=== PATIENT | female | born 1940 | race Caucasian/White ===

== ENCOUNTER 2024-11-30 18:07 | Inpatient (IN) | payer MEDICARE, OTHER ==
[~2024-11-30] VITALS: Ht 177.8 cm; Wt 68.2 kg
[2024-11-30] VITALS (20 sets, daily range): BP systolic 108–175; BP diastolic 57–90
[2024-11-30] MEDS ORDERED: Acetaminophen 300 MG/Codeine 30 MG/COMBO PO ONE (20:05)
[2024-11-30] MEDS ORDERED: KETOROLAC TROMETHAMINE 30 MG/ML SDV IM ONE (20:05)
[2024-11-30] MEDS ORDERED: MORPHINE SULFATE 4 MG/ML VIAL IV PRN (23:25)
[2024-11-30] MEDS ORDERED: MAGNESIUM HYDROXIDE 30 ML UDC PO PRN (23:25)
[2024-11-30] MEDS ORDERED: ACETAMINOPHEN 325 MG/TAB PO PRN (23:25)
[2024-11-30] MEDS ORDERED: SODIUM CHLORIDE 0.9% 1,000 ML IV PRN (23:25)
[2024-11-30] MEDS ORDERED: HYDROcodone 5 MG/Acetaminophen 325 MG/COMBO PO PRN (23:25)
[2024-12-01 00:10] VITALS: BP 123/68
[2024-12-01 00:17] VITALS: BP 123/68
[2024-12-01 04:01] VITALS: BP 130/62
[2024-12-01 05:00] LABS: BASO% 0.2 % (0-3); HEMATOCRIT 28.8 % (37.0-47.0); HEMOGLOBIN 9.4 g/dl (12.0-16.0); IMMATURE GRANULOCYTES 0.2 % (0.0-5.0); LYMPH% 12.3 % (15-41); MEAN CELL VOLUME 97.6 fL CALC (80.0-100.0); MEAN CORPUSCULAR HGB 31.9 pG CALC (26.0-32.0); MEAN CORPUSCULAR HGB CONC 32.6 g/dL CAL (32.0-36.0); MONO% 8.9 % (2-13); NEUT# 7.05 thou/uL (2.00-7.15); NEUT% 78.4 % (42-76); RED BLOOD COUNT 2.95 mill/uL (4.20-5.60); RED CELL DISTRI WIDTH 12.3 % (11.5-15.5)
[2024-12-01 05:15] LABS: ALBUMIN 3.4 g/dL (3.2-5.0); BILIRUBIN, TOTAL 1.3 mg/dL (0.02-1.3); CREATININE 0.5 mg/dL (0.5-1.0); TOTAL PROTEIN 5.8 g/dL (6.3-8.2)
[2024-12-01 07:08] VITALS: BP 136/50
[2024-12-01] MEDS ORDERED: ISOVUE-300 (Iopamidol) 100 ML SDV IV ONE (08:50)
[2024-12-01] MEDS ORDERED: TRELEGY ELLIPTA1 AER IN (10:19)
[2024-12-01] MEDS ORDERED: IPRATROPIU0.5 MG/3 M IN (10:19)
[2024-12-01] MEDS ORDERED: ELIQUIS5 MG PO (10:20)
[2024-12-01] MEDS ORDERED: LEVOTHYROXIN125 MCG PO (10:20)
[2024-12-01] MEDS ORDERED: MULTIVITAMI1 PO (10:20)
[2024-12-01] MEDS ORDERED: HYDROCHLOROT12.5 M1 PO (10:21)
[2024-12-01] MEDS ORDERED: GABAPENTIN100 MG PO (10:21)
[2024-12-01] MEDS ORDERED: NORVASC PO (10:21)
[2024-12-01] MEDS ORDERED: LATANOPROST0.005 % OU (10:22)
[2024-12-01] MEDS ORDERED: IPRATROPIUM-Albuterol 0.5MG-2.5MG/3 ML IN PRN (10:25)
[2024-12-01] MEDS ORDERED: amLODIPine BESYLATE 5 MG/TAB PO SCH (11:00)
[2024-12-01] MEDS ORDERED: hydroCHLOROthiazide 12.5 MG/CAP PO SCH (11:00)
[2024-12-01] MEDS ORDERED: GABAPENTIN 100 MG/CAP PO SCH (11:00)
[2024-12-01] MEDS ORDERED: LEVOTHYROXINE SODIUM 125 MCG/TAB PO SCH (11:00)
[2024-12-01 16:13] VITALS: BP 138/61
[2024-12-01 18:15] LABS: HEMOGLOBIN 8.5 g/dl (12.0-16.0)
[2024-12-01 18:21] VITALS: BP 139/69
[2024-12-01] MEDS ORDERED: LATANOPROST 2.5 ML BTL OU SCH (21:00)
[2024-12-01] MEDS ORDERED: ENOXAPARIN SODIUM 40 MG/0.4 ML SYR SC SCH (21:00)
[2024-12-02] VITALS (9 sets, daily range): BP systolic 130–147; BP diastolic 54–73
[2024-12-02 04:55] LABS: ALBUMIN 2.9 g/dL (3.2-5.0); CREATININE 0.7 mg/dL (0.5-1.0); MAGNESIUM 1.8 mg/dL (1.6-2.3); POTASSIUM 3.5 mmol/l (3.5-5.1); TOTAL PROTEIN 5.2 g/dL (6.3-8.2)
[2024-12-02 04:59] LABS: BASO% 0.4 % (0-3); EOS% 1.3 % (0-8); HEMATOCRIT 23.2 % (37.0-47.0); HEMOGLOBIN 7.5 g/dl (12.0-16.0); IMMATURE GRANULOCYTES 0.4 % (0.0-5.0); LYMPH% 27.3 % (15-41); MEAN CELL VOLUME 98.3 fL CALC (80.0-100.0); MEAN CORPUSCULAR HGB 31.8 pG CALC (26.0-32.0); MEAN CORPUSCULAR HGB CONC 32.3 g/dL CAL (32.0-36.0); MONO% 10.8 % (2-13); NEUT# 3.2 thou/uL (2.00-7.15); NEUT% 59.8 % (42-76); RED BLOOD COUNT 2.36 mill/uL (4.20-5.60); RED CELL DISTRI WIDTH 12.5 % (11.5-15.5)
[2024-12-02 05:16] LABS: BILIRUBIN, TOTAL 0.7 mg/dL (0.02-1.3)
[2024-12-02] MEDS ORDERED: SODIUM CHLORIDE 0.9% 500 ML IV ONE (10:20)
[2024-12-02] MEDS ORDERED: FUROSEMIDE 40 MG/4 ML SDV IV SCH ×2 (11:00→15:30)
[2024-12-03 00:11] VITALS: BP 129/68
[2024-12-03 03:38] VITALS: BP 145/66
[2024-12-03 05:46] LABS: BASO% 0.8 % (0-3); EOS% 1.6 % (0-8); HEMATOCRIT 27.5 % (37.0-47.0); IMMATURE GRANULOCYTES 0.4 % (0.0-5.0); LYMPH% 34.1 % (15-41); MEAN CELL VOLUME 93.2 fL CALC (80.0-100.0); MEAN CORPUSCULAR HGB 32.2 pG CALC (26.0-32.0); MEAN CORPUSCULAR HGB CONC 34.5 g/dL CAL (32.0-36.0); MONO% 14.6 % (2-13); NEUT# 2.42 thou/uL (2.00-7.15); NEUT% 48.5 % (42-76); RED BLOOD COUNT 2.95 mill/uL (4.20-5.60); RED CELL DISTRI WIDTH 13.1 % (11.5-15.5)
[2024-12-03 05:48] LABS: ALBUMIN 3.1 g/dL (3.2-5.0); CREATININE 0.5 mg/dL (0.5-1.0); MAGNESIUM 1.7 mg/dL (1.6-2.3); POTASSIUM 2.9 mmol/l (3.5-5.1); TOTAL PROTEIN 5.5 g/dL (6.3-8.2)
[2024-12-03 05:51] LABS: HEMOGLOBIN 9.5 g/dl (12.0-16.0)
[2024-12-03 05:57] LABS: BILIRUBIN, TOTAL 1.1 mg/dL (0.02-1.3)
[2024-12-03 07:44] VITALS: BP 141/65
[2024-12-03] MEDS ORDERED: POTASSIUM CHLORIDE 20 MEQ/TAB PO SCH (08:30)
[2024-12-03] MEDS ORDERED: TRELEGY ELLIPTA PO SCH (12:00)
[2024-12-03 16:16] VITALS: BP 113/67
[2024-12-03 18:49] VITALS: BP 141/70
[2024-12-04 03:31] VITALS: BP 151/65
[2024-12-04 05:47] LABS: BASO% 0.8 % (0-3); EOS% 3.9 % (0-8); HEMATOCRIT 27.2 % (37.0-47.0); HEMOGLOBIN 9.1 g/dl (12.0-16.0); IMMATURE GRANULOCYTES 0.6 % (0.0-5.0); LYMPH% 33.1 % (15-41); MEAN CELL VOLUME 95.1 fL CALC (80.0-100.0); MEAN CORPUSCULAR HGB 31.8 pG CALC (26.0-32.0); MEAN CORPUSCULAR HGB CONC 33.5 g/dL CAL (32.0-36.0); MONO% 14.3 % (2-13); NEUT# 2.28 thou/uL (2.00-7.15); NEUT% 47.3 % (42-76); RED BLOOD COUNT 2.86 mill/uL (4.20-5.60)
[2024-12-04 05:48] LABS: CREATININE 0.5 mg/dL (0.5-1.0); MAGNESIUM 1.8 mg/dL (1.6-2.3); POTASSIUM 3.3 mmol/l (3.5-5.1); TOTAL PROTEIN 5.5 g/dL (6.3-8.2)
[2024-12-04 07:08] VITALS: BP 148/71
[2024-12-04] MEDS ORDERED: POTASSIUM CHLORIDE 20 MEQ/TAB PO SCH (08:00)
[2024-12-04] MEDS ORDERED: LORTAB 5/3255 MG PO (11:17)
== END 2024-12-04 12:30 | DRG 605 ==
LOC: ED 18:07 → ED-I 20:55 → ED 21:08 → MS2 21:09
PROVIDERS: Nurse Practitioner Family; Surgery; ADMIT Internal Medicine; ATTEND Internal Medicine
PROC: 30233N1 Transfusion of Nonautologous Red Blood Cells into Peripheral Vein, Percutaneous Approach (ICD-10-PCS; principal; 2024-12-02)
PROC: 30233N1 Transfusion of Nonautologous Red Blood Cells into Peripheral Vein, Percutaneous Approach (ICD-10-PCS; 2024-12-02)
DX: S70.11XA Contusion of right thigh, initial encounter (principal); S52.301A Unspecified fracture of shaft of right radius, initial encounter for closed fracture; D62 Acute posthemorrhagic anemia; S80.11XA Contusion of right lower leg, initial encounter; S41.111A Laceration without foreign body of right upper arm, initial encounter; I10 Essential (primary) hypertension; I48.0 Paroxysmal atrial fibrillation; J44.9 Chronic obstructive pulmonary disease, unspecified; G62.9 Polyneuropathy, unspecified; E03.9 Hypothyroidism, unspecified; W18.30XA Fall on same level, unspecified, initial encounter; Y92.410 Unspecified street and highway as the place of occurrence of the external cause; Z79.01 Long term (current) use of anticoagulants
CPT/HCPCS: J1650; J1940; P9016; Q9967